=== PATIENT | female | born 2000 | race Caucasian/White ===

== ENCOUNTER 2023-10-17 19:59 | Emergency (ER) | payer MEDICAID ==
[~2023-10-17] VITALS: Ht 165.1 cm; Wt 123.0 kg
[2023-10-17 20:17] VITALS: BP 111/81; PULSE 89; RESP 16; TEMP 98.4; O2SAT 97
[2023-10-17 22:53] LABS: CLARITY URINE CLEAR (CLEAR); COLOR URINE YELLOW (YELLOW); GLUCOSE URINE NEGATIVE (NEGATIVE); KETONES URINE NEGATIVE (NEGATIVE); LEUKOCYTE ESTERASE URINE NEGATIVE (NEGATIVE); NITRITE URINE NEGATIVE (NEGATIVE); OCCULT BLOOD URINE NEGATIVE (NEGATIVE); PROTEIN URINE NEGATIVE (NEGATIVE); SPECIFIC GRAVITY URINE 1.022 (1.005-1.030)
== END 2023-10-18 02:13 | disposition home or self-care (01) ==
LOC: ER 19:59
DX: R10.2 Pelvic and perineal pain (principal)
CPT/HCPCS: 76830; 76856; 81003; 81025; 99284